=== PATIENT | female | born 1995 | race American Indian/Alaskan Native ===

== ENCOUNTER 2016-07-03 17:37 | Emergency (ER) | payer SELFPAY ==
[2016-07-03 19:37] LABS: Basophils % (Auto) 0.8 % (0.0-1.8); Eosinophils % (Auto) 1.3 % (0.0-4.3); Hemoglobin 14.7 gm/dl (10.1-14.3); Mean Corpuscular HGB Conc 34 % (30-34); Mean Corpuscular Hemoglobin 31 pg (28-32); Mean Corpuscular Volume 91 fl (79-97); Platelet Count 144 K/mm3 (140-440); Red Blood Count 4.71 M/mm3 (3.65-5.03); Red Cell Distribution Width 13.1 % (13.2-15.2); White Blood Count 3.8 K/mm3 (4.5-11.0)
[2016-07-03 20:00] LABS: Alanine Aminotransferase 14 units/L (7-56); Albumin 4.6 g/dL (3.9-5); Albumin/Globulin Ratio 1.2 %; Alkaline Phosphatase 61 units/L (35-129); Anion Gap 17 mmol/L; Bilirubin,Total 0.3 mg/dL (0.1-1.2); Blood Urea Nitrogen 9 mg/dL (7-17); Calcium 9.6 mg/dL (8.4-10.2); Carbon Dioxide 27 mmol/L (22-30); Chloride 98.8 mmol/L (98-107); Glucose 100 mg/dL (65-100); Lipase 21 units/L (13-60); Potassium 3.8 mmol/L (3.6-5.0); Sodium 139 mmol/L (137-145); Total Protein 8.5 g/dL (6.3-8.2)
[2016-07-03 20:42] LABS: Bacteria,Urine 1+ /HPF (Negative); Bilirubin,Urine NEG (Negative); Blood,Urine SM (Negative); Ketones,Urine NEG (Negative); Leukocyte Esterase,Urine TR (Negative); Mucus,Urine 3+ /HPF; Nitrite,Urine NEG (Negative); Protein,Urine <15 mg/dL mg/dL (Negative); Urobilinogen,Urine < 2.0 mg/dL (<2.0); WBC,Urine < 1.0 /HPF (0.0-6.0)
[2016-07-04] MEDS ORDERED: TYLENOL ONE (00:16)
[2016-07-04] MEDS ORDERED: TYLENOL PO ONE (00:22)
--- NOTE | 2016-07-04 07:39 | Emergency Department Report ---
HPI - General Chief Complaint: Abdominal Pain Time Seen by Provider: 07/04/16 07:29 - HPI HPI: Room 23 The patient is a 20-year-old female presenting with a chief complaint of left eye pain and redness. The patient states her symptoms began 2 days ago and body sensation in the left eye. Patient states she developed pain and redness of the eye. Patient states she also developed hearing but denies any discharge from the eye. Patient denies fever. Patient denies any history of trauma to her eye. Patient currently gives her pain a score of 10/10. Location: Left eye Duration: 2 days Quality: Pain Severity: 10/10 Modifying factors: [see above] Context: [see above] Mode of transportation: The patient drove herself to the emergency department and there are no visitors present ED Past Medical Hx - Past Medical History Previous Medical History?: Yes Additional medical history: syncopal episodes, Vaginal delivery 03-24-2015 - Surgical History Past Surgical History?: No - Family History Family history: no significant - Social History Smoking Status: Never Smoker Substance Use Type: None (denies illicit drug use), Alcohol (occasional) - Medications Home Medications: Home Medications Medication Instructions Recorded Confirmed Last Taken Type Cyclobenzaprine [Flexeril] 10 mg PO TID PRN #20 tablet 01/03/16 Unknown Rx Naproxen [Naprosyn] 500 mg PO BID #20 tablet 01/03/16 Unknown Rx Gentamicin 0.3% Ophth Soln 2 drops OS Q4H #1 bottle 07/04/16 Unknown Rx HYDROcodone/APAP 5-325 [Ellsworth 1 - 2 each PO Q6HR PRN #10 tablet 07/04/16 Unknown Rx 5/325] ED Review of Systems ROS: Stated complaint: STOMACH/LT EYE PAIN Other details as noted in HPI Comment: All other systems reviewed and negative Constitutional: denies: chills, fever Eyes: eye pain ENT: denies: ear pain, throat pain Respiratory: denies: cough, shortness of breath, wheezing Cardiovascular: denies: chest pain, palpitations Endocrine: no symptoms reported Gastrointestinal: denies: abdominal pain, nausea, diarrhea Genitourinary: denies: urgency, dysuria, discharge Musculoskeletal: denies: back pain, joint swelling, arthralgia Skin: denies: rash, lesions Neurological: denies: headache, weakness, paresthesias Psychiatric: denies: anxiety, depression Hematological/Lymphatic: denies: easy bleeding, easy bruising Physical Exam - Physical Exam Vital Signs: Vital Signs 07/03/16 07/04/16 07/04/16 18:30 01:19 06:06 Temperature 98.4 F Pulse Rate 83 132 H 74 Respiratory 16 18 18 Rate Blood Pressure 148/91 153/94 Blood Pressure 158/93 [Right] O2 Sat by Pulse 100 100 100 Oximetry Physical Exam: GENERAL: The patient is well-developed well-nourished female sleeping on stretcher not appearing to be in acute distress. [] HEENT: Normocephalic. Atraumatic. Extraocular motions are intact. Patient has moist mucous membranes. Left sclera injected. There is no hyphema or hypopyon. There is no Fl uptake. Patient able to count fingers from left eye NECK: Supple. No meningitic signs are noted. Trachea midline CHEST/LUNGS: There is no respiratory distress noted. HEART/CARDIOVASCULAR: Regular. There is no tachycardia. ABDOMEN: There is no abdominal distention. SKIN: There is no rash. There is no edema. There is no diaphoresis. NEURO: The patient is awake, alert, and oriented. The patient is cooperative. The patient has normal speech MUSCULOSKELETAL: There is no evidence of acute injury. ED Course Vital Signs 07/03/16 07/04/16 07/04/16 18:30 01:19 06:06 Temperature 98.4 F Pulse Rate 83 132 H 74 Respiratory 16 18 18 Rate Blood Pressure 148/91 153/94 Blood Pressure 158/93 [Right] O2 Sat by Pulse 100 100 100 Oximetry ED Medical Decision Making - Lab Data Result diagrams: 07/03/16 19:24 07/03/16 19:24 Laboratory Tests 07/03/16 07/03/16 07/03/16 19:24 19:24 20:00 WBC 3.8 L RBC 4.71 Hgb 14.7 H Hct 43.0 H MCV 91 MCH 31 MCHC 34 RDW 13.1 L Plt Count 144 Lymph % (Auto) 37.0 H Rowan % (Auto) 7.9 H Eos % (Auto) 1.3 Baso % (Auto) 0.8 Lymph # 1.4 Rowan # 0.3 Eos # 0.0 Baso # 0.0 Seg Neutrophils % 53.0 Seg Neutrophils # 2.0 Sodium 139 Potassium 3.8 Chloride 98.8 Carbon Dioxide 27 Anion Gap 17 BUN 9 Creatinine 0.6 L Estimated GFR > 60 BUN/Creatinine Ratio 15.00 Glucose 100 Calcium 9.6 Total Bilirubin 0.3 AST 16 ALT 14 Alkaline Phosphatase 61 Total Protein 8.5 H Albumin 4.6 Albumin/Globulin Ratio 1.2 Lipase 21 Urine Color Yellow Urine Turbidity Clear Urine pH 6.0 Ur Specific [place] 1.027 Urine Protein <15 mg/dl Urine Glucose (UA) Neg Urine Ketones Neg Urine Blood Sm Urine Nitrite Neg Ur Reducing Substances Not Reportable Urine Bilirubin Neg Urine Ictotest Not Reportable Urine Urobilinogen < 2.0 Ur Leukocyte Esterase Tr Urine WBC (Auto) < 1.0 Urine RBC (Auto) 4.0 U Epithel Cells (Auto) 1.0 Urine Bacteria (Auto) 1+ Urine Mucus 3+ Urine HCG, Qual Negative - Differential Diagnosis conjunctivitis, hypopyon Critical care attestation.: If time is entered above; I have spent that time in minutes in the direct care of this critically ill patient, excluding procedure time. ED Disposition Clinical Impression: Acute conjunctivitis of left eye Disposition: DISCHARGED TO HOME OR SELFCARE Is pt being admited?: No Does the pt Need Aspirin: No Condition: Stable Instructions: Conjunctivitis (ED), Eye Pain (ED) Additional Instructions: Return to the emergency department immediately should you develop worsening symptoms, fever, inability to tolerate food or liquid or any other concerns. Prescriptions: Gentamicin 0.3% Ophth Soln 2 drops OS Q4H #1 bottle HYDROcodone/APAP 5-325 [Ellsworth 5/325] 1 - 2 each PO Q6HR PRN #10 tablet PRN Reason: Pain Referrals: MICHAEL ALEXANDRA MD [Primary Care Provider] - 3-5 Days SANTOS GAMEZ MD [Staff Physician] - [place] (Dr. Gamez is an environmental health aide. Please follow up with him for further evaluation) [facility] [Outside] - 3-5 Days Time of Disposition: 08:07
[2016-07-04] MEDS ORDERED: TETRACAINE 0.5% ONE (07:42)
[2016-07-04] MEDS ORDERED: FUL-GLO OP ONE (07:42)
[2016-07-04] MEDS ORDERED: BSS ONE (07:42)
[2016-07-04 08:08] VITALS: BP 148/83
== END 2016-07-04 08:07 | disposition home or self-care (01) ==
LOC: ED 17:37
DX: H10.32 Unspecified acute conjunctivitis, left eye (principal); Z91.010 Allergy to peanuts
CPT/HCPCS: 36415; 80053; 81001; 81025; 83690; 85025

== ENCOUNTER 2016-08-20 11:22 | Emergency (ER) | payer SELFPAY ==
[2016-08-20 12:48] LABS: Basophils % (Auto) 0.3 % (0.0-1.8); Eosinophils % (Auto) 1.5 % (0.0-4.3); Hematocrit 40.3 % (30.3-42.9); Hemoglobin 13.8 gm/dl (10.1-14.3); Mean Corpuscular HGB Conc 34 % (30-34); Mean Corpuscular Hemoglobin 32 pg (28-32); Mean Corpuscular Volume 93 fl (79-97); Platelet Count 238 K/mm3 (140-440); Red Blood Count 4.36 M/mm3 (3.65-5.03); Red Cell Distribution Width 12.6 % (13.2-15.2)
[2016-08-20 13:40] LABS: Alanine Aminotransferase 9 units/L (7-56); Albumin/Globulin Ratio 0.7 %; Alkaline Phosphatase 60 units/L (35-129); BUN/Creatinine Ratio 13.33; Blood Urea Nitrogen 8 mg/dL (7-17); Calcium 9.9 mg/dL (8.4-10.2); Carbon Dioxide 24 mmol/L (22-30); Glucose 85 mg/dL (65-100); Lipase 16 units/L (13-60); Total Protein 9.9 g/dL (6.3-8.2)
[2016-08-20 15:35] LABS: Anion Gap 25 mmol/L; Chloride 95.4 mmol/L (98-107); Sodium 139 mmol/L (137-145)
--- NOTE | 2016-08-20 22:18 | Emergency Department Report ---
ED Abdominal Pain HPI - General Chief Complaint: Abdominal Pain Stated Complaint: RT SIDE PAIN Time Seen by Provider: 08/20/16 21:16 Source: patient Mode of arrival: Ambulatory Limitations: No Limitations - History of Present Illness Initial Comments: 20-year-old female with no past medical history presenting today because of abdominal pain. She states that the pain has been going on for approximately 2 weeks and originally was suprapubic then moved to the right adnexa and now is periumbilical. Describes the pain as mild to moderate associated with occasional nausea and one or 2 bouts of vomiting with the last couple weeks. Has not had a stool since yesterday but denies feeling constipated. She isn't had no prior surgeries. Was recently diagnosed with a bacterial vaginal infection and was given metronidazole which she did not complete as she is feeling nauseous. Severity scale (0 -10): 9 - Related Data Previous Rx's Medication Instructions Recorded Last Taken Type Cyclobenzaprine [Flexeril] 10 mg PO TID PRN #20 tablet 01/03/16 Unknown Rx Naproxen [Naprosyn] 500 mg PO BID #20 tablet 01/03/16 Unknown Rx Gentamicin 0.3% Ophth Soln 2 drops OS Q4H #1 bottle 07/04/16 Unknown Rx HYDROcodone/APAP 5-325 [[place]uni[place] 1 - 2 each PO Q6HR PRN #10 tablet 07/04/16 Unknown Rx 5/325] Dicyclomine [Bentyl] 10 mg PO BID #14 capsule 08/21/16 Unknown Rx Polyethylene Glycol 3350 [Miralax 17 gm PO QDAY #7 packet 08/21/16 Unknown Rx 3350] Allergies Allergy/AdvReac Type Severity Reaction Status Date / Time peanut Allergy Swelling Verified 06/26/14 23:05 ED Review of Systems ROS: Stated complaint: RT SIDE PAIN Other details as noted in HPI Comment: All other systems reviewed and negative Constitutional: denies: chills, fever ENT: denies: ear pain Respiratory: denies: cough Cardiovascular: denies: chest pain Gastrointestinal: denies: abdominal pain, vomiting Genitourinary: denies: dysuria Skin: denies: rash Psychiatric: denies: anxiety ED Past Medical Hx - Past Medical History Previous Medical History?: No Additional medical history: syncopal episodes, Vaginal delivery 03-24-2015 - Surgical History Past Surgical History?: No - Social History Smoking Status: Never Smoker Substance Use Type: Alcohol - Medications Home Medications: Home Medications Medication Instructions Recorded Confirmed Last Taken Type Cyclobenzaprine [Flexeril] 10 mg PO TID PRN #20 tablet 01/03/16 Unknown Rx Naproxen [Naprosyn] 500 mg PO BID #20 tablet 01/03/16 Unknown Rx Gentamicin 0.3% Ophth Soln 2 drops OS Q4H #1 bottle 07/04/16 Unknown Rx HYDROcodone/APAP 5-325 [[place]uni[place] 1 - 2 each PO Q6HR PRN #10 tablet 07/04/16 Unknown Rx 5/325] Dicyclomine [Bentyl] 10 mg PO BID #14 capsule 08/21/16 Unknown Rx Polyethylene Glycol 3350 [Miralax 17 gm PO QDAY #7 packet 08/21/16 Unknown Rx 3350] ED Physical Exam - General Limitations: No Limitations General appearance: alert, in no apparent distress - Head Head exam: Present: atraumatic - Respiratory Respiratory exam: Present: normal lung sounds bilaterally. Absent: respiratory distress, wheezes - Cardiovascular Cardiovascular Exam: Present: regular rate, normal rhythm - GI/Abdominal GI/Abdominal exam: Present: soft, tenderness (mild subjective tenderness diffusely, no guarding or rebound, Smith's negative, no tenderness McBurney's point). Absent: distended, rigid - Speculum exam: Present: other (moderate amount of discharge in the vaginal vault , grayish appearance, foul-smelling, no CMT, no adnexal tenderness) - Neurological Exam Neurological exam: Present: alert, oriented X3 - Psychiatric Psychiatric exam: Present: normal affect - Skin Skin exam: Present: intact. Absent: rash ED Course Vital Signs 08/20/16 08/20/16 08/21/16 11:52 21:01 01:36 Temperature 98.3 F 97.9 F 98.6 F Pulse Rate 83 86 99 H Respiratory 16 18 16 Rate Blood Pressure 108/61 Blood Pressure 150/80 114/75 [Left] O2 Sat by Pulse 99 100 99 Oximetry ED Medical Decision Making - Lab Data Result diagrams: 08/20/16 12:37 08/20/16 12:37 - Medical Decision Making labs unremarkable u/s of ruq unremarkable appears nontoxic and exam is unremarkable she does admit to constipation on reexamination, will give miralax stable for discharge Critical care attestation.: If time is entered above; I have spent that time in minutes in the direct care of this critically ill patient, excluding procedure time. ED Disposition Clinical Impression: Bacterial vaginosis Abdominal pain Qualifiers: Abdominal location: generalized Qualified Code(s): R10.84 - Generalized abdominal pain Disposition: DISCHARGED TO HOME OR SELFCARE Is pt being admited?: No Condition: Stable Instructions: Bacterial Vaginosis (ED), Constipation (ED), Abdominal Pain (ED) Additional Instructions: Please follow up with the primary care physician in the next 3-5 days. Return to the ER if your symptoms significantly worsen or you develop new symptoms. Prescriptions: Dicyclomine [Bentyl] 10 mg PO BID #14 capsule Polyethylene Glycol 3350 [Miralax 3350] 17 gm PO QDAY #7 packet Referrals: PRIMARY CARE, [Primary Care Provider] - 3-5 Days Forms: STI Treatment and Prevention
--- NOTE | 2016-08-20 23:59 | Ultrasound Report ---
FINAL REPORT EXAM: US ABDOMEN LIMITED HISTORY: ruq pain, ro cholecystitis TECHNIQUE: Multiple grayscale sonographic images were obtained of the right upper quadrant of the abdomen. PRIORS: None. FINDINGS: Visualized portion of the aorta is normal in caliber. No gross abnormality is seen in the visualized portion of the pancreas. The pancreas is incompletely evaluated this study. No focal hepatic lesion is identified. There is mild prominence to the portal triads. Gallbladder wall thickness is approximately 1 millimeter. No shadowing stones are seen. Common bile duct measures 1.6 millimeters in diameter. Right kidney measures 11.1 centimeters in length. It has normal sonographic appearance. IMPRESSION: 1. Normal-appearing gallbladder. 2. No abnormal biliary dilatation is seen. 3. There is mild prominence to the portal triads. This is a nonspecific finding. It can be seen associated with viral syndromes.
[2016-08-21] MEDS ORDERED: MOTRIN PO ONE ×2 (01:15→01:27)
[2016-08-21 01:38] VITALS: BP 114/75
== END 2016-08-21 01:36 | disposition home or self-care (01) ==
LOC: ED 11:22
DX: N76.0 Acute vaginitis (principal)
CPT/HCPCS: 36415; 76705; 80053; 83690; 84703; 85025; 87210; 87591; 99284

== ENCOUNTER 2017-12-08 08:45 | Emergency (ER) | payer OTHER ==
[2017-12-08 09:17] VITALS: BP 133/88
[2017-12-08 11:45] LABS: Bilirubin,Urine NEG (Negative); Blood,Urine MOD (Negative); Color,Urine Yellow (Yellow); Mucus,Urine FEW /HPF; Protein,Urine <15 mg/dL mg/dL (Negative); Urobilinogen,Urine < 2.0 mg/dL (<2.0)
[2017-12-08] MEDS ORDERED: ZITHROMAX PO ONE (11:50)
[2017-12-08] MEDS ORDERED: ROCEPHIN IM ONE (11:50)
[2017-12-08] MEDS ORDERED: XYLOCAINE 1% MPF 5 mL INFILTRATI ONE (11:50)
--- NOTE | 2017-12-08 11:50 | Emergency Department Report ---
ED Female HPI - General Chief complaint: Urogenital-Female Stated complaint: VAGINAL DISCHARGE Time Seen by Provider: 12/08/17 11:00 Source: patient Mode of arrival: Ambulatory Limitations: No Limitations - History of Present Illness Initial comments: This is a 22-year-old female nontoxic, well nourished in appearance, no acute signs of distress presents to the ED with c/o of vaginal discharge and bilateral boils to under arm and groin area. Patient denies any vaginal pain or swelling. Patient denies any vaginal ulcers or lesions. Patient denies any nausea, vomiting, chest pain, shortness of breathe, fever, chills, headache, back pain, numbness, tingling, stiff neck. Patient denies any abdominal or pelvic pain. Patient denies any urinary symptoms. Patient stated she is concerned about STD and wants to be tested and treated. Patient denies any allergies or PMH. MD Complaint: vaginal discharge, possible STD -: week(s) (1) Location: labia Radiation: non-radiating Severity scale (0 -10): 0 Improves with: none Worsens with: none Are you Now?: No Associated Symptoms: vaginal discharge. denies: vaginal bleeding, abdominal pain, nausea/vomiting, fever/chills, headaches, loss of appetite, dysuria, hematuria, rash, seizure, shortness of breath, syncope, weakness - Related Data Sexually active: Yes Previous Rx's Medication Instructions Recorded Last Taken Type Cyclobenzaprine [Flexeril] 10 mg PO TID PRN #20 tablet 01/03/16 Unknown Rx Naproxen [Naprosyn] 500 mg PO BID #20 tablet 01/03/16 Unknown Rx Gentamicin 0.3% Ophth Soln 2 drops OS Q4H #1 bottle 07/04/16 Unknown Rx HYDROcodone/APAP 5-325 [Hines 1 - 2 each PO Q6HR PRN #10 tablet 07/04/16 Unknown Rx 5/325] Dicyclomine [Bentyl] 10 mg PO BID #14 capsule 08/21/16 Unknown Rx Polyethylene Glycol 3350 [Miralax 17 gm PO QDAY #7 packet 08/21/16 Unknown Rx 3350] Fluconazole [Diflucan] 150 mg PO ONCE #1 tablet 12/08/17 Unknown Rx Sulfamethoxazole/Trimethoprim 1 each PO BID #14 tablet 12/08/17 Unknown Rx [Bactrim DS TAB] metroNIDAZOLE [Flagyl] 500 mg PO Q12HR #14 tab 12/08/17 Unknown Rx Allergies Allergy/AdvReac Type Severity Reaction Status Date / Time peanut Allergy Swelling Verified 06/26/14 23:05 ED Review of Systems ROS: Stated complaint: VAGINAL DISCHARGE Other details as noted in HPI Constitutional: denies: chills, fever Eyes: denies: eye pain, eye discharge, vision change ENT: denies: ear pain, throat pain Respiratory: denies: cough, shortness of breath, wheezing Cardiovascular: denies: chest pain, palpitations Endocrine: no symptoms reported Gastrointestinal: denies: abdominal pain, nausea, diarrhea Genitourinary: discharge. denies: urgency, dysuria Musculoskeletal: denies: back pain, joint swelling, arthralgia Skin: denies: rash, lesions Neurological: denies: headache, weakness, paresthesias Psychiatric: denies: anxiety, depression Hematological/Lymphatic: denies: easy bleeding, easy bruising ED Past Medical Hx - Past Medical History Additional medical history: syncopal episodes, Vaginal delivery 03-24-2015 - Social History Smoking Status: Never Smoker Substance Use Type: Alcohol - Medications Home Medications: Home Medications Medication Instructions Recorded Confirmed Last Taken Type Cyclobenzaprine [Flexeril] 10 mg PO TID PRN #20 tablet 01/03/16 Unknown Rx Naproxen [Naprosyn] 500 mg PO BID #20 tablet 01/03/16 Unknown Rx Gentamicin 0.3% Ophth Soln 2 drops OS Q4H #1 bottle 07/04/16 Unknown Rx HYDROcodone/APAP 5-325 [[place]ines 1 - 2 each PO Q6HR PRN #10 tablet 07/04/16 Unknown Rx 5/325] Dicyclomine [Bentyl] 10 mg PO BID #14 capsule 08/21/16 Unknown Rx Polyethylene Glycol 3350 [Miralax 17 gm PO QDAY #7 packet 08/21/16 Unknown Rx 3350] Fluconazole [Diflucan] 150 mg PO ONCE #1 tablet 12/08/17 Unknown Rx Sulfamethoxazole/Trimethoprim 1 each PO BID #14 tablet 12/08/17 Unknown Rx [Bactrim DS TAB] metroNIDAZOLE [Flagyl] 500 mg PO Q12HR #14 tab 12/08/17 Unknown Rx ED Physical Exam - General Limitations: No Limitations General appearance: alert, in no apparent distress - Head Head exam: Present: atraumatic, normocephalic - Eye Eye exam: Present: normal appearance Pupils: Present: normal accommodation - ENT ENT exam: Present: mucous membranes moist - Neck Neck exam: Present: normal inspection - Respiratory Respiratory exam: Present: normal lung sounds bilaterally. Absent: respiratory distress - Cardiovascular Cardiovascular Exam: Present: regular rate, normal rhythm. Absent: systolic murmur, diastolic murmur, rubs, gallop - GI/Abdominal GI/Abdominal exam: Present: soft, normal bowel sounds. Absent: distended, tenderness, guarding, rebound, rigid, diminished bowel sounds - External exam: Present: normal external exam, other (No abscess. Small 0.5 cm flutance present with no induration. first cook [employer]ond[employer] construction sales representative present during exam). Absent: erythema, swelling, lesions, lacerations, ecchymosis, bleeding Speculum exam: Present: cervical discharge (white colored), other (first cook [employer]ond[employer] construction sales representative present during exam). Absent: erythema, vaginal discharge, vaginal bleeding, foreign body, tissue, laceration Bi-manual exam: Present: normal bi-manual exam, other (first cook [employer] construction sales representative present during exam). Absent: cervical motion tendernes, adnexal tenderness, adnexal mass, uterine enlargement, uterine tenderness - Extremities Exam Extremities exam: Present: normal inspection, full ROM - Back Exam Back exam: Present: normal inspection, full ROM - Neurological Exam Neurological exam: Present: alert, oriented X3 - Psychiatric Psychiatric exam: Present: normal affect, normal mood - Skin Skin exam: Present: warm, dry, intact, normal color. Absent: rash - Other Other exam information: Bilateral axilla area has about 3-4 small 0.5 cm flutance with no induration noted. No abscess present. No pus or drainage. There is tenderness with some redness to the areas. ED Course Vital Signs 12/08/17 09:14 Temperature 98.8 F Pulse Rate 99 H Respiratory 18 Rate Blood Pressure 133/88 O2 Sat by Pulse 100 Oximetry - Reevaluation(s) Reevaluation #1: 12/08/17 11:56 Patient is speaking in full sentences with no signs of distress noted. ED Medical Decision Making - Medical Decision Making This is a 22-year-old female that presents with possible STD, BV, yeast, and cellulitits. Patient is stable was examined by me. Patient was instructed that if the swelling increased and there is induration that this may be an abscess and to return to the ED if this is present as it has been be lanced. There is no abdominal tenderness. No pelvic pain. UA obtained. Wet prep obtained. Gonorrhea chlamydia swab pending. Patient was instructed to return in 2 days for GC results. Patient wanted empirical treatment so patient received 250 mg Rocephin and 1 g of azithromycin by mouth. Patient was instructed to Follow-up with a primary care doctor in 3-5 days or if symptoms worsen and continue return to emergency room as soon as possible. At time of discharge, the patient does not seem toxic or ill in appearance. No acute signs of distress noted. Patient agrees to discharge treatment plan of care. No further questions noted by the patient. Critical care attestation.: If time is entered above; I have spent that time in minutes in the direct care of this critically ill patient, excluding procedure time. ED Disposition Clinical Impression: Possible exposure to STD, Vaginal candidiasis, Bacterial vaginosis Cellulitis Qualifiers: Site of cellulitis: extremity Site of cellulitis of extremity: upper extremity Laterality: right Qualified Code(s): L03.113 - Cellulitis of right upper limb Disposition: DC-01 TO HOME OR SELFCARE Is pt being admited?: No Does the pt Need Aspirin: No Condition: Stable Instructions: Bacterial Vaginosis (ED), Safe Sex (ED), Abscess (ED), Metronidazole (By mouth) Additional Instructions: Follow-up with a primary care doctor in 3-5 days or if symptoms worsen and continue return to emergency room as soon as possible. Do not consume any alcohol while taking antibiotics. Return in 2-3 days for gonorrhea and chlamydia results. Prescriptions: Fluconazole [Diflucan] 150 mg PO ONCE #1 tablet metroNIDAZOLE [Flagyl] 500 mg PO Q12HR #14 tab Sulfamethoxazole/Trimethoprim [Bactrim DS TAB] 1 each PO BID #14 tablet Referrals: PRIMARY CAREMD [Primary Care Provider] - 3-5 Days LIVAN CHAPPELL MD [Staff Physician] - 3-5 Days [facility] [Outside] - 3-5 Days [facility] [Outside] - 3-5 Days Forms: Work/School Release Form(ED)
[2017-12-08 11:56] LABS: HCG Qualitative,Urine Negative (Negative)
== END 2017-12-08 12:29 | disposition home or self-care (01) ==
LOC: ED 08:45
DX: L03.113 Cellulitis of right upper limb (principal); N76.0 Acute vaginitis; B37.3 Candidiasis of vulva and vagina; Z91.010 Allergy to peanuts
CPT/HCPCS: 81001; 81025; 87210; 87591; 96372; 99284; J0696

== ENCOUNTER 2018-05-27 09:16 | Emergency (ER) | payer OTHER ==
[2018-05-27 09:37] VITALS: BP 116/80
[2018-05-27] MEDS ORDERED: ZITHROMAX PO ONE (10:15)
[2018-05-27] MEDS ORDERED: ROCEPHIN IM ONE (10:15)
[2018-05-27] MEDS ORDERED: XYLOCAINE 1% MPF 5 mL INFILTRATI ONE (10:15)
--- NOTE | 2018-05-27 10:15 | Emergency Department Report ---
ED Female HPI - General Chief complaint: Headache Stated complaint: HEADACHE Time Seen by Provider: 05/27/18 09:58 Source: patient Mode of arrival: Ambulatory Limitations: No Limitations - History of Present Illness Initial comments: Patient is a 22-year-old female who presents to ED stating that she recently took some antibiotics and afterwards she started expressing some vaginal discharge. Patient states that she is had no dysuria, vaginal itching, vaginal bleeding, pelvic pain, nausea vomiting or abdominal pain. Patient does state that she is worried she could have an STD. she denies all of the symptoms MD Complaint: vaginal discharge Are you Now?: No - Related Data Previous Rx's Medication Instructions Recorded Last Taken Type Cyclobenzaprine [Flexeril] 10 mg PO TID PRN #20 tablet 01/03/16 Unknown Rx Naproxen [Naprosyn] 500 mg PO BID #20 tablet 01/03/16 Unknown Rx Gentamicin 0.3% Ophth Soln 2 drops OS Q4H #1 bottle 07/04/16 Unknown Rx HYDROcodone/APAP 5-325 [[place] 1 - 2 each PO Q6HR PRN #10 tablet 07/04/16 Unknown Rx 5/325] Dicyclomine [Bentyl] 10 mg PO BID #14 capsule 08/21/16 Unknown Rx Polyethylene Glycol 3350 [Miralax 17 gm PO QDAY #7 packet 08/21/16 Unknown Rx 3350] Sulfamethoxazole/Trimethoprim 1 each PO BID #14 tablet 12/08/17 Unknown Rx [Bactrim DS TAB] Acetaminophen [Tylenol Extra 1,000 mg PO QID PRN #30 tablet 05/04/18 Unknown Rx Strength] Amoxicillin/Potassium Clav 1 each PO BID 10 Days #20 tablet 05/04/18 Unknown Rx [Augmentin 875-125 Tablet] Metoclopramide [Reglan] 10 mg PO TID PRN #30 tab 05/04/18 Unknown Rx diphenhydrAMINE [Benadryl CAP] 25 mg PO Q8HR PRN #30 capsule 05/04/18 Unknown Rx Fluconazole [Diflucan] 150 mg PO ONCE #2 tablet 05/27/18 Unknown Rx metroNIDAZOLE [Flagyl TAB] 500 mg PO Q12HR #14 tab 05/27/18 Unknown Rx Allergies Allergy/AdvReac Type Severity Reaction Status Date / Time egg Allergy Unknown Verified 05/03/18 20:46 peanut Allergy Swelling Verified 06/26/14 23:05 ED Review of Systems ROS: Stated complaint: HEADACHE Other details as noted in HPI Comment: All other systems reviewed and negative ED Past Medical Hx - Past Medical History Previous Medical History?: No Additional medical history: syncopal episodes, Vaginal delivery 03-24-2015 - Surgical History Past Surgical History?: No - Social History Smoking Status: Never Smoker Substance Use Type: Alcohol - Medications Home Medications: Home Medications Medication Instructions Recorded Confirmed Last Taken Type Cyclobenzaprine [Flexeril] 10 mg PO TID PRN #20 tablet 01/03/16 Unknown Rx Naproxen [Naprosyn] 500 mg PO BID #20 tablet 01/03/16 Unknown Rx Gentamicin 0.3% Ophth Soln 2 drops OS Q4H #1 bottle 07/04/16 Unknown Rx HYDROcodone/APAP 5-325 [[place] 1 - 2 each PO Q6HR PRN #10 tablet 07/04/16 Unknown Rx 5/325] Dicyclomine [Bentyl] 10 mg PO BID #14 capsule 08/21/16 Unknown Rx Polyethylene Glycol 3350 [Miralax 17 gm PO QDAY #7 packet 08/21/16 Unknown Rx 3350] Sulfamethoxazole/Trimethoprim 1 each PO BID #14 tablet 12/08/17 Unknown Rx [Bactrim DS TAB] Acetaminophen [Tylenol Extra 1,000 mg PO QID PRN #30 tablet 05/04/18 Unknown Rx Strength] Amoxicillin/Potassium Clav 1 each PO BID 10 Days #20 tablet 05/04/18 Unknown Rx [Augmentin 875-125 Tablet] Metoclopramide [Reglan] 10 mg PO TID PRN #30 tab 05/04/18 Unknown Rx diphenhydrAMINE [Benadryl CAP] 25 mg PO Q8HR PRN #30 capsule 05/04/18 Unknown Rx Fluconazole [Diflucan] 150 mg PO ONCE #2 tablet 05/27/18 Unknown Rx metroNIDAZOLE [Flagyl TAB] 500 mg PO Q12HR #14 tab 05/27/18 Unknown Rx ED Physical Exam - General Limitations: No Limitations General appearance: alert, in no apparent distress - Head Head exam: Present: atraumatic, normocephalic - Eye Eye exam: Present: normal appearance - ENT ENT exam: Present: mucous membranes moist - Neck Neck exam: Present: normal inspection - Respiratory Respiratory exam: Present: normal lung sounds bilaterally. Absent: respiratory distress - Cardiovascular Cardiovascular Exam: Present: regular rate, normal rhythm. Absent: systolic murmur, diastolic murmur, rubs, gallop - GI/Abdominal GI/Abdominal exam: Present: soft, normal bowel sounds. Absent: distended, tenderness, rebound - Extremities Exam Extremities exam: Present: normal inspection - Back Exam Back exam: Present: normal inspection - Neurological Exam Neurological exam: Present: alert, oriented X3 - Psychiatric Psychiatric exam: Present: normal affect, normal mood - Skin Skin exam: Present: warm, dry, intact, normal color. Absent: rash ED Course Vital Signs 05/27/18 09:35 Temperature 97.9 F Pulse Rate 79 Respiratory 20 Rate Blood Pressure 116/80 O2 Sat by Pulse 100 Oximetry ED Medical Decision Making - Medical Decision Making 22-year-old female presents with possible vaginitis and STD. ED course: Patient received 250 mg of Rocephin, azithromycin 1 g, Flagyl 2 g. Discussed with patient possible STD due to exposure. Discussed with patient findings and treatment Discussed prophylaxis treatment patient is to abstain from sex 7-10 days as treatment. Discussed patient partner knowledge and treatment. Discussed the follow-up with the health department for further STD testing. Patient's alert and oriented times 3. Vital signs are normal patient is in no acute discharge. Patient will be discharged home with instructions. Critical care attestation.: If time is entered above; I have spent that time in minutes in the direct care of this critically ill patient, excluding procedure time. ED Disposition Clinical Impression: Vaginitis Disposition: - TO HOME OR SELFCARE Is pt being admited?: No Does the pt Need Aspirin: No Condition: Stable Instructions: Safe Sex (ED), Sexually Transmitted Diseases (ED), Vaginitis (ED) Additional Instructions: Make sure to follow up with the primary care physician as discussed. Take all your medications as you've been prescribed. If you have any worsening symptoms or develop new symptoms please return to ED immediately. Prescriptions: Fluconazole [Diflucan] 150 mg PO ONCE #2 tablet metroNIDAZOLE [Flagyl TAB] 500 mg PO Q12HR #14 tab Referrals: [facility] [Outside] - 3-5 Days Forms: Work/School Release Form(ED) Time of Disposition: 10:18
== END 2018-05-27 10:59 | disposition home or self-care (01) ==
LOC: ED 09:16
DX: N76.0 Acute vaginitis (principal); Z91.010 Allergy to peanuts; Z91.012 Allergy to eggs
CPT/HCPCS: 96372; 99282; J0696

== ENCOUNTER 2019-03-06 18:54 | Emergency (ER) | payer SELFPAY ==
--- NOTE | 2019-03-06 19:17 | Event Note ---
ED Screening Note Date of service: 03/06/19 Time: 19:16 ED Screening Note: This is a 23 y.o. F. that presents to the ER with chest pain and shortness of breath after accidentally swallowing a screw. This initial assessment/diagnostic orders/clinical plan/treatment(s) is/are subject to change based on patients health status, clinical progression and re- assessment by fellow clinical providers in the ED. Further treatment and workup at subsequent clinical providers discretion. Patient/guardian urged not to elope from the ED as their condition may be serious if not clinically assessed and managed. Initial orders include: CXR and EKG
--- NOTE | 2019-03-06 19:50 | XRay Report ---
CHEST 2 VIEWS INDICATION / CLINICAL INFORMATION: chest pain. COMPARISON: None available. FINDINGS: SUPPORT DEVICES: None. HEART / MEDIASTINUM: No significant abnormality. LUNGS / PLEURA: No significant pulmonary or pleural abnormality. No pneumothorax. ADDITIONAL FINDINGS: No significant additional findings. IMPRESSION: 1. No significant abnormality. Signer Name: Elham Medina MD Signed: 03/06/2019 7:46 PM Workstation Name: [id number]
[2019-03-06] MEDS ORDERED: LIDOCAINE VISCOUS 2% 15 ML ORAL LIQD PO ONE (19:57)
[2019-03-06] MEDS ORDERED: ALUM-MAG HYDROXIDE-SIMETHICONE 200-200-20MG/5ML ORAL LIQD 30 ML PO ONE (19:57)
[2019-03-06] MEDS ORDERED: FAMOTIDINE 20 MG TAB PO ONE (19:58)
--- NOTE | 2019-03-06 20:09 | Emergency Department Report ---
ED General Adult HPI - General Chief complaint: Chest Pain Stated complaint: CHEST PAIN/SWALLOWED SCREW Source: patient Mode of arrival: Ambulatory Limitations: No Limitations - History of Present Illness Initial comments: Patient is a 23-year-old -[place] female with no past medical history who presents to the ED for evaluation after she accidentally swallowed a metall ic screw 8 hours ago and developed acute onset substernal chest pain with nausea and vomiting 1. Patient states that prior to swallowing the metallic screw, she had been having persistent headache and had plan to take ibuprofen but instead of swallowing the ibuprofen, she accidentally swallowed a metallic screw that was on her hand. Patient is discussed that she still ended up taking ibuprofen towards for her headache. Patient denies dizziness, shortness of breath, dysphagia, dysphonia, hemoptysis, hematemesis, abdominal pain, sore throat or hematochezia. MD Complaint: Swallowed foreign body, chest pain -: Sudden, hour(s) (8) Location: chest, abdomen Quality: aching, dull Consistency: constant Improves with: none Worsens with: none Associated Symptoms: denies other symptoms, chest pain, nausea/vomiting. denies: confusion, cough, diaphoresis, fever/chills, headaches, loss of appetite, malaise, rash, shortness of breath, syncope, weakness, other Treatments Prior to Arrival: NSAID - Related Data Previous Rx's Medication Instructions Recorded Last Taken Type Cyclobenzaprine [Flexeril] 10 mg PO TID PRN #20 tablet 01/03/16 Unknown Rx Naproxen [Naprosyn] 500 mg PO BID #20 tablet 01/03/16 Unknown Rx Gentamicin 0.3% Ophth Soln 2 drops OS Q4H #1 bottle 07/04/16 Unknown Rx HYDROcodone/APAP 5-325 [[place] 1 - 2 each PO Q6HR PRN #10 tablet 07/04/16 Unknown Rx 5/325] Dicyclomine [Bentyl] 10 mg PO BID #14 capsule 08/21/16 Unknown Rx Polyethylene Glycol 3350 [Miralax 17 gm PO QDAY #7 packet 08/21/16 Unknown Rx 3350] Sulfamethoxazole/Trimethoprim 1 each PO BID #14 tablet 12/08/17 Unknown Rx [Bactrim DS TAB] Acetaminophen [Tylenol Extra 1,000 mg PO QID PRN #30 tablet 05/04/18 Unknown Rx Strength] Amoxicillin/Potassium Clav 1 each PO BID 10 Days #20 tablet 05/04/18 Unknown Rx [Augmentin 875-125 Tablet] Metoclopramide [Reglan] 10 mg PO TID PRN #30 tab 05/04/18 Unknown Rx diphenhydrAMINE [Benadryl CAP] 25 mg PO Q8HR PRN #30 capsule 05/04/18 Unknown Rx Fluconazole [Diflucan] 150 mg PO ONCE #2 tablet 05/27/18 Unknown Rx metroNIDAZOLE [Flagyl TAB] 500 mg PO Q12HR #14 tab 05/27/18 Unknown Rx Famotidine [Pepcid] 20 mg PO Q12H #30 tablet 03/06/19 Unknown Rx Ondansetron [Zofran Odt] 4 mg PO Q6HR PRN #15 tab.rapdis 03/06/19 Unknown Rx Allergies Allergy/AdvReac Type Severity Reaction Status Date / Time egg Allergy Unknown Verified 05/03/18 20:46 peanut Allergy Swelling Verified 06/26/14 23:05 ED Review of Systems ROS: Stated complaint: CHEST PAIN/SWALLOWED SCREW Other details as noted in HPI Constitutional: denies: chills, fever Eyes: denies: eye pain, eye discharge, vision change ENT: denies: ear pain, throat pain Respiratory: denies: cough, shortness of breath, wheezing Cardiovascular: chest pain (substernal chest pain after swallowing a foreign object). denies: palpitations, dyspnea on exertion, syncope, paroxysmal nocturnal dyspnea Endocrine: no symptoms reported Gastrointestinal: nausea, vomiting. denies: abdominal pain, diarrhea Genitourinary: denies: urgency, dysuria, discharge Musculoskeletal: denies: back pain, joint swelling, arthralgia Skin: denies: rash, lesions Neurological: denies: headache, weakness, paresthesias Psychiatric: denies: anxiety, depression Hematological/Lymphatic: denies: easy bleeding, easy bruising ED Past Medical Hx - Past Medical History Previous Medical History?: No Additional medical history: syncopal episodes, Vaginal delivery 03-24-2015 - Surgical History Past Surgical History?: No - Social History Smoking Status: Never Smoker Substance Use Type: None - Medications Home Medications: Home Medications Medication Instructions Recorded Confirmed Last Taken Type Cyclobenzaprine [Flexeril] 10 mg PO TID PRN #20 tablet 01/03/16 Unknown Rx Naproxen [Naprosyn] 500 mg PO BID #20 tablet 01/03/16 Unknown Rx Gentamicin 0.3% Ophth Soln 2 drops OS Q4H #1 bottle 07/04/16 Unknown Rx HYDROcodone/APAP 5-325 [[place] 1 - 2 each PO Q6HR PRN #10 tablet 07/04/16 Unknown Rx 5/325] Dicyclomine [Bentyl] 10 mg PO BID #14 capsule 08/21/16 Unknown Rx Polyethylene Glycol 3350 [Miralax 17 gm PO QDAY #7 packet 08/21/16 Unknown Rx 3350] Sulfamethoxazole/Trimethoprim 1 each PO BID #14 tablet 12/08/17 Unknown Rx [Bactrim DS TAB] Acetaminophen [Tylenol Extra 1,000 mg PO QID PRN #30 tablet 05/04/18 Unknown Rx Strength] Amoxicillin/Potassium Clav 1 each PO BID 10 Days #20 tablet 05/04/18 Unknown Rx [Augmentin 875-125 Tablet] Metoclopramide [Reglan] 10 mg PO TID PRN #30 tab 05/04/18 Unknown Rx diphenhydrAMINE [Benadryl CAP] 25 mg PO Q8HR PRN #30 capsule 05/04/18 Unknown Rx Fluconazole [Diflucan] 150 mg PO ONCE #2 tablet 05/27/18 Unknown Rx metroNIDAZOLE [Flagyl TAB] 500 mg PO Q12HR #14 tab 05/27/18 Unknown Rx Famotidine [Pepcid] 20 mg PO Q12H #30 tablet 03/06/19 Unknown Rx Ondansetron [Zofran Odt] 4 mg PO Q6HR PRN #15 tab.rapdis 03/06/19 Unknown Rx ED Physical Exam - General Limitations: No Limitations General appearance: alert, in no apparent distress - Head Head exam: Present: atraumatic, normocephalic, normal inspection - Eye Eye exam: Present: normal appearance, PERRL, EOMI Pupils: Present: normal accommodation - ENT ENT exam: Present: normal exam, normal orophraynx, mucous membranes moist, TM's normal bilaterally, normal external ear exam - Neck Neck exam: Present: normal inspection, full ROM - Respiratory Respiratory exam: Present: normal lung sounds bilaterally. Absent: respiratory distress, wheezes, rales, chest wall tenderness, accessory muscle use, decreased breath sounds, prolonged expiratory - Cardiovascular Cardiovascular Exam: Present: regular rate, normal rhythm, normal heart sounds. Absent: systolic murmur, diastolic murmur, rubs, gallop - GI/Abdominal GI/Abdominal exam: Present: soft, normal bowel sounds. Absent: tenderness, guarding, hyperactive bowel sounds - Extremities Exam Extremities exam: Present: normal inspection, full ROM, normal capillary refill - Back Exam Back exam: Present: normal inspection, full ROM. Absent: tenderness, CVA tenderness (L), muscle spasm - Neurological Exam Neurological exam: Present: alert, oriented X3, CN II-XII intact, normal gait, reflexes normal - Psychiatric Psychiatric exam: Present: normal affect, normal mood, anxious - Skin Skin exam: Present: warm, dry, intact, normal color. Absent: rash ED Course Vital Signs 03/06/19 21:15 Temperature 98.4 F Pulse Rate 73 Respiratory 18 Rate Blood Pressure 152/108 [Left] O2 Sat by Pulse 100 Oximetry ED Medical Decision Making - Radiology Data Radiology results: report reviewed, image reviewed Chest x-ray shows no acute cardiopulmonary abnormalities, pneumothorax or any foreign body in the chest cavity -------- Findings [facility] [address] [place] [address] XRay Report Signed Patient: MICHELLE FRITZ MR#: [id number] : 1995 Acct:[id number] Age/Sex: 23 / F ADM Date: 03/06/19 Loc: ED Attending Dr: Ordering Physician: IWNSTON BALLARD Date of Service: 03/06/19 Procedure(s): XR abdomen 1V ap Accession Number(s): [id number] cc: WINSTON BALLARD Fluoro Time In Minutes: ABDOMEN, SINGLE VIEW INDICATION / CLINICAL INFORMATION: MAIN: Foreign body swallowed swallowed screw . COMPARISON: None available. FINDINGS: There is a radiopaque foreign object, consistent with a screw, projecting to the left of midline at L1. This appears to be within the gastric lumen based on location. Bowel gas pattern is normal. No obvious free air identified on this single supine image. IMPRESSION: A screw is present in the upper abdomen to the left of midline. I suspect it is within the gastric lumen. Signer Name: Elham Medina MD Signed: 03/06/2019 8:41 PM Workstation Name: [id number] Transcribed By: Dictated By: Elham Medina MD Electronically Authenticated By: Elham Medina MD Signed Date/Time: 03/06/192040 DD/ 39 TD/TT: - Medical Decision Making This is a 23-year-old female who presented to the ED for evaluation after she accidentally swallowed a metallic screw about 8 hours ago at home and started having chest wall pain with one episode of nausea and vomiting. The ED, patient is alert and oriented 3 additional treatment distress. Chest x-ray shows no acute cardiopulmonary abnormalities or pneumothorax or any foreign bodies in the chest cavity. Abdomen x-ray shows a screw present in the upper abdomen to the left of midline. I suspect it is within the gastric lumen. Patient was treated for pain with GI cocktail and Pepcid. On reevaluation, patient's pain is well- controlled with medications. The patient was discharged home on medications and advised to follow-up with her primary care physician in 5-7 days for reevaluation. Patient was advised to return to the ED immediately if symptoms get worse. - Differential Diagnosis Foreign body swallowed; Gastritis; Esophageal tear; GERD Critical care attestation.: If time is entered above; I have spent that time in minutes in the direct care of this critically ill patient, excluding procedure time. ED Disposition Clinical Impression: Acute chest wall pain Foreign body, swallowed Qualifiers: Encounter type: initial encounter Qualified Code(s): T18.9XXA - Foreign body of alimentary tract, part unspecified, initial encounter Disposition: DC-01 TO HOME OR SELFCARE Is pt being admited?: No Does the pt Need Aspirin: No Condition: Stable Instructions: Chest Pain (ED), Foreign Body Ingestion (ED) Additional Instructions: Take medications as needed for pain, drink plenty of fluids and follow up with your primary care physician in 5-7 days for reevaluation. Return to the ED immediately if symptoms get worse. Prescriptions: Famotidine [Pepcid] 20 mg PO Q12H #30 tablet Ondansetron [Zofran Odt] 4 mg PO Q6HR PRN #15 tab.rapdis PRN Reason: Nausea Referrals: KRISTIE AYALA ACCESS RN [Primary Care Provider] - 3-5 Days Time of Disposition: 21:03 Print Language: SLOVENIAN
--- NOTE | 2019-03-06 20:45 | XRay Report ---
ABDOMEN, SINGLE VIEW INDICATION / CLINICAL INFORMATION: MAIN: Foreign body swallowed swallowed screw . COMPARISON: None available. FINDINGS: There is a radiopaque foreign object, consistent with a screw, projecting to the left of midline at L 1. This appears to be within the gastric lumen based on location. Bowel gas pattern is normal. No obvious free air identified on this single supine image. IMPRESSION: A screw is present in the upper abdomen to the left of midline. I suspect it is within t he gastric lumen. Signer Name: Elham Medina MD Signed: 03/06/2019 8:41 PM Workstation Name: [id number]
[2019-03-06 21:16] VITALS: BP 152/108
== END 2019-03-06 21:17 | disposition home or self-care (01) ==
LOC: ED 18:54
DX: T18.9XXA Foreign body of alimentary tract, part unspecified, initial encounter (principal); R07.2 Precordial pain; R55 Syncope and collapse; Z79.899 Other long term (current) drug therapy; Z91.012 Allergy to eggs; Z91.010 Allergy to peanuts; Y92.89 Other specified places as the place of occurrence of the external cause
CPT/HCPCS: 71046; 74018; 93005; 93010

== ENCOUNTER 2019-03-13 10:43 | Emergency (ER) | payer SELFPAY ==
--- NOTE | 2019-03-13 11:44 | Emergency Department Report ---
ED General Adult HPI - General Chief complaint: Urogenital-Female Stated complaint: VAG DISCHARGE Time Seen by Provider: 03/13/19 11:14 Source: patient Mode of arrival: Ambulatory Limitations: No Limitations - History of Present Illness Initial comments: 23-year-old -[place] female presents with complaints of vaginal discharge and mild lower abdominal pain 2 days. She states the discharge is white in color and has a slight odor. She denies any dysuria/hematuria/urinary frequency, vaginal bleeding, dyspareunia, or fever. Rates her abdominal pain as a 3/10 in severity and describes it as an achy cramping pain Consistency: constant Improves with: none Worsens with: none Associated Symptoms: denies other symptoms - Related Data Previous Rx's Medication Instructions Recorded Last Taken Type Cyclobenzaprine [Flexeril] 10 mg PO TID PRN #20 tablet 01/03/16 Unknown Rx Naproxen [Naprosyn] 500 mg PO BID #20 tablet 01/03/16 Unknown Rx Gentamicin 0.3% Ophth Soln 2 drops OS Q4H #1 bottle 07/04/16 Unknown Rx HYDROcodone/APAP 5-325 [[place] 1 - 2 each PO Q6HR PRN #10 tablet 07/04/16 Unknown Rx 5/325] Dicyclomine [Bentyl] 10 mg PO BID #14 capsule 08/21/16 Unknown Rx Polyethylene Glycol 3350 [Miralax 17 gm PO QDAY #7 packet 08/21/16 Unknown Rx 3350] Sulfamethoxazole/Trimethoprim 1 each PO BID #14 tablet 12/08/17 Unknown Rx [Bactrim DS TAB] Acetaminophen [Tylenol Extra 1,000 mg PO QID PRN #30 tablet 05/04/18 Unknown Rx Strength] Amoxicillin/Potassium Clav 1 each PO BID 10 Days #20 tablet 05/04/18 Unknown Rx [Augmentin 875-125 Tablet] Metoclopramide [Reglan] 10 mg PO TID PRN #30 tab 05/04/18 Unknown Rx diphenhydrAMINE [Benadryl CAP] 25 mg PO Q8HR PRN #30 capsule 05/04/18 Unknown Rx Fluconazole [Diflucan] 150 mg PO ONCE #2 tablet 05/27/18 Unknown Rx metroNIDAZOLE [Flagyl TAB] 500 mg PO Q12HR #14 tab 05/27/18 Unknown Rx Famotidine [Pepcid] 20 mg PO Q12H #30 tablet 03/06/19 Unknown Rx Ondansetron [Zofran Odt] 4 mg PO Q6HR PRN #15 tab.rapdis 03/06/19 Unknown Rx Doxycycline Monohydrate 100 mg PO BID 14 Days #28 capsule 03/13/19 Unknown Rx Allergies Allergy/AdvReac Type Severity Reaction Status Date / Time egg Allergy Unknown Verified 05/03/18 20:46 peanut Allergy Swelling Verified 06/26/14 23:05 ED Review of Systems ROS: Stated complaint: VAG DISCHARGE Other details as noted in HPI Comment: All other systems reviewed and negative Gastrointestinal: abdominal pain Genitourinary: as per HPI ED Past Medical Hx - Past Medical History Previous Medical History?: Yes Additional medical history: syncopal episodes, Vaginal delivery 03-24-2015 - Surgical History Past Surgical History?: No - Social History Smoking Status: Never Smoker Substance Use Type: Alcohol - Medications Home Medications: Home Medications Medication Instructions Recorded Confirmed Last Taken Type Cyclobenzaprine [Flexeril] 10 mg PO TID PRN #20 tablet 01/03/16 Unknown Rx Naproxen [Naprosyn] 500 mg PO BID #20 tablet 01/03/16 Unknown Rx Gentamicin 0.3% Ophth Soln 2 drops OS Q4H #1 bottle 07/04/16 Unknown Rx HYDROcodone/APAP 5-325 [[place] 1 - 2 each PO Q6HR PRN #10 tablet 07/04/16 Unknown Rx 5/325] Dicyclomine [Bentyl] 10 mg PO BID #14 capsule 08/21/16 Unknown Rx Polyethylene Glycol 3350 [Miralax 17 gm PO QDAY #7 packet 08/21/16 Unknown Rx 3350] Sulfamethoxazole/Trimethoprim 1 each PO BID #14 tablet 12/08/17 Unknown Rx [Bactrim DS TAB] Acetaminophen [Tylenol Extra 1,000 mg PO QID PRN #30 tablet 05/04/18 Unknown Rx Strength] Amoxicillin/Potassium Clav 1 each PO BID 10 Days #20 tablet 05/04/18 Unknown Rx [Augmentin 875-125 Tablet] Metoclopramide [Reglan] 10 mg PO TID PRN #30 tab 05/04/18 Unknown Rx diphenhydrAMINE [Benadryl CAP] 25 mg PO Q8HR PRN #30 capsule 05/04/18 Unknown Rx Fluconazole [Diflucan] 150 mg PO ONCE #2 tablet 05/27/18 Unknown Rx metroNIDAZOLE [Flagyl TAB] 500 mg PO Q12HR #14 tab 05/27/18 Unknown Rx Famotidine [Pepcid] 20 mg PO Q12H #30 tablet 03/06/19 Unknown Rx Ondansetron [Zofran Odt] 4 mg PO Q6HR PRN #15 tab.rapdis 03/06/19 Unknown Rx Doxycycline Monohydrate 100 mg PO BID 14 Days #28 capsule 03/13/19 Unknown Rx ED Physical Exam - General Limitations: No Limitations General appearance: alert, in no apparent distress - Head Head exam: Present: atraumatic, normocephalic - Eye Eye exam: Present: normal appearance - ENT ENT exam: Present: mucous membranes moist - Neck Neck exam: Present: normal inspection - Respiratory Respiratory exam: Present: normal lung sounds bilaterally. Absent: respiratory distress - Cardiovascular Cardiovascular Exam: Present: regular rate, normal rhythm. Absent: systolic murmur, diastolic murmur, rubs, gallop - GI/Abdominal GI/Abdominal exam: Present: soft, normal bowel sounds. Absent: distended, tenderness, guarding, rebound, rigid - External exam: Present: normal external exam Speculum exam: Present: vaginal discharge, cervical discharge. Absent: erythema, vaginal bleeding, foreign body Bi-manual exam: Present: cervical motion tendernes - Back Exam Back exam: Present: normal inspection - Neurological Exam Neurological exam: Present: alert, oriented X3 - Psychiatric Psychiatric exam: Present: normal affect, normal mood - Skin Skin exam: Present: warm, dry, intact, normal color. Absent: rash ED Course Vital Signs 03/13/19 03/13/19 10:49 11:39 Temperature 98.4 F Pulse Rate 106 H 82 Respiratory 16 Rate Blood Pressure 178/91 Blood Pressure 130/81 [Left] O2 Sat by Pulse 96 Oximetry ED Medical Decision Making - Lab Data Lab Results 03/13/19 Range/Units 11:53 Urine Color Yellow (Yellow) Urine Turbidity Clear (Clear) Urine pH 7.0 (5.0-7.0) Ur Specific [place] 1.023 (1.003-1.030) Urine Protein <15 mg/dl (Negative) mg/dL Urine Glucose (UA) Neg (Negative) mg/dL Urine Ketones Neg (Negative) mg/dL Urine Blood Mod (Negative) Urine Nitrite Neg (Negative) Urine Bilirubin Neg (Negative) Urine Urobilinogen < 2.0 (<2.0) mg/dL Ur Leukocyte Esterase Neg (Negative) Urine WBC (Auto) 0.0 (0.0-6.0) /HPF Urine RBC (Auto) 7.0 (0.0-6.0) /HPF U Epithel Cells (Auto) 1.0 (0-13.0) /HPF Urine HCG, Qual Negative (Negative) - Medical Decision Making 23-year-old -Swazi female presents with complaints of vaginal discharge and mild lower abdominal pain 2 days. UA is negative for UTI. Wet prep shows BV. Effuse vaginal discharge noted on exam along with cervical motional tenderness. Patient given empiric treatment for gonorrhea and chlamydia and we'll discharge home with doxycycline for treatment for PID. Recommend follow-up with [facility] within 3-5 days. Discussed very strict return precautions in detail with patient verbalizes understanding. Critical care attestation.: If time is entered above; I have spent that time in minutes in the direct care of this critically ill patient, excluding procedure time. ED Disposition Clinical Impression: Bacterial vaginosis, PID (acute pelvic inflammatory disease) Disposition: DC-01 TO HOME OR SELFCARE Is pt being admited?: No Condition: Stable Instructions: Bacterial Vaginosis (ED), Pelvic Inflammatory Disease (ED) Prescriptions: Doxycycline Monohydrate 100 mg PO BID 14 Days #28 capsule Referrals: KRISTIE AYALA NP [Primary Care Provider] - 3-5 Days Forms: [facility] Treatment and Prevention
[2019-03-13 11:49] VITALS: BP 130/81
[2019-03-13 12:16] LABS: Bilirubin,Urine NEG (Negative); Blood,Urine MOD (Negative); Color,Urine Yellow (Yellow); Protein,Urine <15 mg/dL mg/dL (Negative); Urobilinogen,Urine < 2.0 mg/dL (<2.0)
[2019-03-13 12:19] LABS: HCG Qualitative,Urine Negative (Negative)
[2019-03-13] MEDS ORDERED: LIDOCAINE-MPF (1%) 10 MG/1 ML VIAL 5 ML INFILTRATI ONE (12:19)
[2019-03-13] MEDS ORDERED: AZITHROMYCIN 250 MG TAB PO ONE (12:19)
== END 2019-03-13 14:01 | disposition home or self-care (01) ==
LOC: ED 10:43
DX: N76.0 Acute vaginitis (principal); N73.9 Female pelvic inflammatory disease, unspecified; F10.10 Alcohol abuse, uncomplicated; Z79.899 Other long term (current) drug therapy; Z91.012 Allergy to eggs; Z91.010 Allergy to peanuts
CPT/HCPCS: 81001; 81025; 87210; 87591; 96372; 99284; J0696

== ENCOUNTER 2021-05-18 03:58 | Emergency (ER) | payer OTHER ==
[2021-05-18] MEDS ORDERED: SODIUM CHLORIDE 0.9% 500 ML 500 ML IV ONE (04:12)
[2021-05-18] MEDS ORDERED: TETANUS,DIPH,PERTUSS(ACELL) VACCINE 0.5 ML SYRINGE IM ONE (04:12)
[2021-05-18] MEDS ORDERED: MORPHINE 2 MG/1 ML INJ IV ONE (04:12)
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
[2021-05-18 05:16] LABS: Hematocrit 43.7 % (30.3-42.9); Mean Corpuscular HGB Conc 34 % (30-34); Mean Corpuscular Volume 93 fl (79-97); Platelet Count 221 K/mm3 (140-440); Red Blood Count 4.73 M/mm3 (3.65-5.03); Red Cell Distribution Width 12.7 % (13.2-15.2)
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
[2021-05-18 05:30] LABS: INR 0.84 (0.87-1.13)
[2021-05-18 05:31] LABS: Partial Thromboplastin Time 24.8 Sec. (24.2-36.6)
[2021-05-18 05:32] LABS: Alanine Aminotransferase 102 units/L (7-56); Albumin 4.8 g/dL (3.9-5); BUN/Creatinine Ratio 13; Blood Urea Nitrogen 14 mg/dL (7-17); Calcium 9.5 mg/dL (8.4-10.2); Hemolysis Index 29
[2021-05-18] MEDS ORDERED: SODIUM CHLORIDE 0.9% IRR 500 ML BOTTLE IR ONE (05:48)
[2021-05-18] MEDS ORDERED: LIDOCAINE (1%) 10 MG/1 ML VIAL 20 ML MDV INFILTRATI ONE (05:48)
[2021-05-18] MEDS ORDERED: LACTATED RINGERS 1,000 ML IV ONE (06:25)
[2021-05-18] MEDS ORDERED: LIDOCAINE 2% JELLY 30 ML TP ONE (06:25)
[2021-05-18] MEDS ORDERED: KETOROLAC 30 MG/1 ML INJ IV ONE (06:25)
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
[2021-05-18 09:33] VITALS: BP 107/62
== END 2021-05-18 09:34 | disposition home or self-care (01) ==
LOC: ED 03:58
DX: S81.012A Laceration without foreign body, left knee, initial encounter (principal); S00.81XA Abrasion of other part of head, initial encounter; S30.810A Abrasion of lower back and pelvis, initial encounter; Z72.89 Other problems related to lifestyle; Z91.012 Allergy to eggs; Z91.010 Allergy to peanuts; R79.1 Abnormal coagulation profile; Z79.1 Long term (current) use of non-steroidal anti-inflammatories (NSAID); Z79.899 Other long term (current) drug therapy; V87.7XXA Person injured in collision between other specified motor vehicles (traffic), initial encounter; Y93.89 Activity, other specified; Y92.488 Other paved roadways as the place of occurrence of the external cause; Y99.8 Other external cause status
CPT/HCPCS: 12002; 36415; 70450; 71045; 72125; 72170; 73562; 80053; 83690; 84702; 85027; 85610; 85730; 90471; 90715; 96361; 96374; 96375; 99284; J1885; J2270; J3490; J7040; J7120; 80320; G0480